=== PATIENT | male | born 1955 | race Caucasian/White ===

== ENCOUNTER 2016-09-14 15:14 | Emergency (ER) | payer BC, OTHER ==
[2016-09-14 17:12] VITALS: BP 150/111
--- NOTE | 2016-09-15 16:32 | EDM.PDOC ---
ED HPI GENERAL MEDICAL PROBLEM - General Chief Complaint: General Stated Complaint: Possible DVT Time Seen by Provider: 09/14/16 15:35 Source of Information: Reports: Patient History Limitations: Reports: No Limitations - History of Present Illness INITIAL COMMENTS - FREE TEXT/NARRATIVE: This is a 61yo M here for concerns of right lower leg swelling. Patient states the right lower leg has been swelling for the past few days and he was told to be concerned of a clot. Patient states the right lower extremity does not hurt and does not feel any different. Patient denies any recent long travel but has been fishing. Onset: Gradual Duration: Day(s): Location: Reports: Lower Extremity, Right Severity: Mild Improves with: Reports: None Worsens with: Reports: None Associated Symptoms: Reports: No Other Symptoms - Related Data Allergies Allergy/AdvReac Type Severity Reaction Status Date / Time No Known Allergies Allergy Verified 09/14/16 15:29 Home Meds: Home Meds Atenolol [Tenormin] 25 mg PO DAILY 03/28/14 [History] Simvastatin [Simvastatin] 20 mg PO DAILY 03/28/14 [History] Cyclobenzaprine [Flexeril] 10 mg PO BEDTIME 09/14/16 [History] Past Medical History - Past Health History Medical/Surgical History: Denies Medical/Surgical History Cardiovascular History: Reports: High Cholesterol, Hypertension - Past Surgical History Musculoskeletal Surgical History: Reports: Arthroscopic Knee Social & Family History - Family History Family Medical History: Noncontributory - Tobacco Use Smoking Status *Q: Never Smoker Second Hand Smoke Exposure: No - Caffeine Use Caffeine Use: Reports: Coffee - Recreational Drug Use Recreational Drug Use: No ED ROS GENERAL - Review of Systems Review Of Systems: ROS reveals no pertinent complaints other than HPI. ED EXAM, GENERAL - Physical Exam Exam: See Below Exam Limited By: No Limitations General Appearance: Alert, WD/WN, No Apparent Distress Ears: Normal External Exam Nose: Normal Inspection Throat/Mouth: Normal Inspection Head: Atraumatic, Normocephalic Neck: Normal Inspection Respiratory/Chest: No Respiratory Distress, Lungs Clear, Normal Breath Sounds Cardiovascular: Normal Peripheral Pulses, Regular Rate, Rhythm Peripheral Pulses: 2+: Dorsalis Pedis (L), Dorsalis Pedis (R) Extremities: Normal Inspection, Normal Range of Motion, Non-Tender, Normal Capillary Refill, Other (right 1+ pitting edema) Neurological: Alert, Oriented, CN II-XII Intact Course - Vital Signs Last Recorded V/S: Last Vital Signs Temp 36.6 C 09/14/16 15:35 Pulse 94 09/14/16 16:14 Resp 18 09/14/16 16:14 BP 150/111 H 09/14/16 16:14 Pulse Ox 98 09/14/16 15:35 - Orders/Labs/Meds Labs: Laboratory Tests 09/14/16 09/14/16 09/14/16 Range/Units 16:35 16:35 16:35 WBC 6.2 D (4.0-11.0) K/uL RBC 4.86 (4.50-6.50) M/uL Hgb 14.9 (13.0-18.0) g/dL Hct 42.6 (40.0-54.0) % MCV 88 (76-96) fL MCH 30.7 (27.0-32.0) pg MCHC 35.0 (31.0-35.0) g/dL RDW 13.0 (11.0-16.0) % Plt Count 239 (150-400) K/uL MPV 9.4 (6.0-10.0) fL Neut % (Auto) 55.3 (45.0-70.0) % Lymph % (Auto) 31.8 (20.0-40.0) % [place] % (Auto) 8.7 (3.0-10.0) % Eos % (Auto) 3.7 (1.0-5.0) % Baso % (Auto) 0.5 (0.0-0.5) % Neut # (Auto) 3.45 (2.00-7.50) K/uL Lymph # (Auto) 1.98 (1.50-4.00) K/uL [place] # (Auto) 0.54 (0.20-0.80) K/uL Eos # (Auto) 0.23 (0.04-0.40) K/uL Baso # (Auto) 0.03 (0.02-0.10) K/uL PT (9.0-11.5) sec INR (1.0-3.5) D-Dimer, Quantitative < 100 (0-400) ng/mL Sodium 140 (136-145) mmol/L Potassium 4.4 (3.5-5.1) mmol/L Chloride 104 (98-107) mmol/L Carbon Dioxide 28.1 (21.0-32.0) mmol/L Anion Gap 12.3 (5.0-15.0) mmol/L BUN 13 (8-26) mg/dL Creatinine 0.91 (0.70-1.30) mg/dL Est Cr Clr Drug Dosing 80.38 mL/min Estimated GFR (MDRD) > 60 (>60) MLS/MIN BUN/Creatinine Ratio 14.3 (6-25) Glucose 104 H (74-100) mg/dL Calcium 8.9 (8.5-10.1) mg/dL B-Natriuretic Peptide 44 (0-125) pg/mL 09/14/16 Range/Units 16:35 WBC (4.0-11.0) K/uL RBC (4.50-6.50) M/uL Hgb (13.0-18.0) g/dL Hct (40.0-54.0) % MCV (76-96) fL MCH (27.0-32.0) pg MCHC (31.0-35.0) g/dL RDW (11.0-16.0) % Plt Count (150-400) K/uL MPV (6.0-10.0) fL Neut % (Auto) (45.0-70.0) % Lymph % (Auto) (20.0-40.0) % [place] % (Auto) (3.0-10.0) % Eos % (Auto) (1.0-5.0) % Baso % (Auto) (0.0-0.5) % Neut # (Auto) (2.00-7.50) K/uL Lymph # (Auto) (1.50-4.00) K/uL [place] # (Auto) (0.20-0.80) K/uL Eos # (Auto) (0.04-0.40) K/uL Baso # (Auto) (0.02-0.10) K/uL PT 9.6 (9.0-11.5) sec INR 0.9 L (1.0-3.5) D-Dimer, Quantitative (0-400) ng/mL Sodium (136-145) mmol/L Potassium (3.5-5.1) mmol/L Chloride (98-107) mmol/L Carbon Dioxide (21.0-32.0) mmol/L Anion Gap (5.0-15.0) mmol/L BUN (8-26) mg/dL Creatinine (0.70-1.30) mg/dL Est Cr Clr Drug Dosing mL/min Estimated GFR (MDRD) (>60) MLS/MIN BUN/Creatinine Ratio (6-25) Glucose (74-100) mg/dL Calcium (8.5-10.1) mg/dL B-Natriuretic Peptide (0-125) pg/mL Departure - Departure Time of Disposition: 16:00 Disposition: Home, Self-Care 01 Condition: Good Clinical Impression: Right leg swelling - Discharge Information Instructions: Deep Vein Thrombosis Referrals: PCP,None [Primary Care Provider] - Forms: ED Department Discharge Additional Instructions: If swelling continues follow up with primary care provider. If you notice any further signs or symptoms of DVT please return to the ED. If you have any questions or concerns please call [phone]. - Problem List & Annotations (1) Right leg swelling SNOMED Code(s): 459014051 Code(s): M79.89 - OTHER SPECIFIED SOFT TISSUE DISORDERS Status: Acute - Problem List Review Problem List Initiated/Reviewed/Updated: Yes - Assessment/Plan Plan: Counseled on right lower leg swelling supportive and conservative therapy and to f/u with PCP if symptoms do not resolve in the next week and f/u in ER if symptoms worsen prior to PCP visit.
== END 2016-09-14 17:52 | disposition home or self-care (01) ==
LOC: LB.ED 15:14
DX: M79.89 Other specified soft tissue disorders (principal); E78.00 Pure hypercholesterolemia, unspecified; I10 Essential (primary) hypertension; Z79.899 Other long term (current) drug therapy
CPT/HCPCS: 36415; 80048; 83880; 85025; 85379; 85610; 99282; 99283